=== PATIENT | male | born 1980 | race Caucasian/White ===

== ENCOUNTER 2018-03-21 13:31 | Emergency (ER) | payer SELFPAY ==
[~2018-03-21] VITALS: Ht 167.6 cm; Wt 98.0 kg
[~2018-03-21 13:31] MED LIST: ASPI-825 PO; INSLAN SQ; LISI10TA PO; METF-446 PO; OMEG1CAP12 PO
[2018-03-21 13:43] LABS: GLUCOSE,POINT OF CARE 276 MG/DL (70-110)
[2018-03-21] MEDS ORDERED: KETOROLAC TROMETHAMINE 60 MG/2 ML VIAL IM ONE (15:00)
[2018-03-21] MEDS ORDERED: METHOCARBAMOL 500 MG TABLET PO ONE (15:00)
[2018-03-21 15:51] VITALS: BP 150/94
== END 2018-03-21 15:53 | disposition home or self-care (01) ==
LOC: EMS 13:32
DX: S16.1XXA Strain of muscle, fascia and tendon at neck level, initial encounter (principal); I10 Essential (primary) hypertension; E11.9 Type 2 diabetes mellitus without complications; E78.00 Pure hypercholesterolemia, unspecified; Z98.890 Other specified postprocedural states; Z79.82 Long term (current) use of aspirin; Z79.4 Long term (current) use of insulin; Z79.899 Other long term (current) drug therapy; V87.7XXA Person injured in collision between other specified motor vehicles (traffic), initial encounter; Y93.89 Activity, other specified; Y92.89 Other specified places as the place of occurrence of the external cause; Y99.8 Other external cause status
CPT/HCPCS: 82962; 96372; 99283; J1885

== ENCOUNTER 2022-02-14 01:11 | Emergency (ER) | payer SELFPAY ==
[~2022-02-14] VITALS: Ht 170.2 cm; Wt 90.9 kg
[2022-02-14 01:38] VITALS: BP 139/74
[2022-02-14] MEDS ORDERED: ACETAMINOPHEN 500 MG TABLET PO ONE (01:45)
== END 2022-02-14 02:21 | disposition home or self-care (01) ==
LOC: EMS 01:13
DX: I83.891 Varicose veins of right lower extremity with other complications (principal); E11.9 Type 2 diabetes mellitus without complications; I10 Essential (primary) hypertension; E78.00 Pure hypercholesterolemia, unspecified; Z98.890 Other specified postprocedural states
CPT/HCPCS: 82962; 99283

== ENCOUNTER 2022-07-04 08:22 | Emergency (ER) | payer SELFPAY ==
[~2022-07-04] VITALS: Ht 170.2 cm; Wt 99.6 kg
[2022-07-04] MEDS ORDERED: LORazepam 1 MG TABLET PO ONE (08:45)
[2022-07-04 09:04] LABS: BASOPHILS % (AUTO) 0.6 % (0.0-2.0); EOSINOPHILS % (AUTO) 0.5 % (1.0-6.0); HEMATOCRIT 40.4 % (41-53); HEMOGLOBIN 13.8 g/dL (13.5-17.5); LYMPHOCYTES # (AUTO) 2.1 K/uL (1.0-4.8); MEAN CORPUSCULAR HEMOGLOBIN 29.5 pg (26.0-34.0); MEAN CORPUSCULAR HGB CONC 34.3 G/dL (31.0-37.0); MEAN CORPUSCULAR VOLUME 86 fL (80-100); MONOCYTES # (AUTO) 0.5 K/uL (0.1-1.0); MONOCYTES % (AUTO) 4.6 % (2.0-9.0); NEUTROPHILS # (AUTO) 7.2 K/uL (1.8-7.7); NEUTROPHILS % (AUTO) 73.3 % (40.0-70.0); PLATELET COUNT (AUTO) 148 K/uL (150-450); RED BLOOD CELL COUNT(AUTO) 4.69 MIL/uL (4.50-5.90); RED CELL DISTRIBUTION WIDTH 14.1 % (11.5-14.5)
[2022-07-04 09:14] LABS: ANION GAP 9 mmol/L (8-16); CALCIUM, TOTAL 9.1 mg/dL (8.8-10.5); CARBON DIOXIDE 26 mmol/L (22-29); CHLORIDE 99 mmol/L (98-107); GLOMERULAR FILTR. RATE CALC > 60 mL/min (>60); GLUCOSE,RANDOM 289 mg/dL (70-110); POTASSIUM 4.4 mmol/L (3.5-5.1); SODIUM SERUM 134 mmol/L (136-145); UREA NITROGEN, BLOOD 14 mg/dL (7-18)
[2022-07-04 09:38] LABS: ALANINE AMINOTRANSFERASE 23 U/L (12-78); ALBUMIN 3.7 g/dL (3.4-5.0); ALKALINE PHOSPHATASE 67 U/L (46-116); ASPARTATE AMINOTRANSFERASE 15 U/L (15-37); BILIRUBIN,TOTAL 0.3 mg/dL (0.1-1.0); CREATINE KINASE, TOTAL ONLY 149 U/L (39-308); TOTAL PROTEIN, SERUM 7.4 g/dL (6.4-8.2)
[2022-07-04 09:46] LABS: APPEARANCE,URINE CLEAR (CLEAR); BILIRUBIN,URINE NEGATIVE (NEGATIVE); GLUCOSE, URINE (UA) >=1000 mg/dL (NEGATIVE); LEUKOCYTE ESTERASE ,URINE NEGATIVE (NEGATIVE); NITRATE,URINE NEGATIVE (NEGATIVE); OCCULT BLOOD,URINE NEGATIVE (NEGATIVE); PH,URINE 5.5 (5.0-8.0); PROTEIN,URINE 30-70 mg/dL (NEGATIVE); SPECIFIC GRAVITIY, URINE 1.025 (1.003-1.030); UROBILINOGEN,URINE <=1.0 mg/dL (<=1.0)
[2022-07-04 09:50] LABS: B-TYPE NATRIURETIC PEPTIDE < 5 pg/mL (0-100)
[2022-07-04 10:15] LABS: BACTERIA,URINE Rare /HPF (None Seen); RBC,URINE None Seen /HPF (0-2); WBC,URINE 0-2 /HPF (0-5)
[2022-07-04 10:16] LABS: SQUAMOUS EPITHELIAL CELL,UR Rare /LPF (None Seen)
[2022-07-04] MEDS ORDERED: LORA-1000 PO (14:07)
[2022-07-04 14:16] VITALS: BP 135/85
== END 2022-07-04 14:28 | disposition home or self-care (01) ==
LOC: EMS 08:24
DX: R07.89 Other chest pain (principal); F41.9 Anxiety disorder, unspecified; E11.9 Type 2 diabetes mellitus without complications; E78.00 Pure hypercholesterolemia, unspecified; I10 Essential (primary) hypertension; Z96.653 Presence of artificial knee joint, bilateral; Z98.890 Other specified postprocedural states
CPT/HCPCS: 71045; 80053; 81001; 82550; 83880; 84484; 85025; 93005; 99285; 36415-L1; 36415-TC

== ENCOUNTER 2023-10-03 10:24 | Emergency (ER) | payer MEDICAID, OTHER ==
[~2023-10-03] VITALS: Ht 170.2 cm; Wt 92.3 kg
[~2023-10-03 10:24] MED LIST changes: +LORA-1000 PO
[2023-10-03 10:37] VITALS: TEMP 98
[2023-10-03 12:56] LABS: GLUCOMETER DEV NAME(LOC) ER.7; GLUCOSE,POINT OF CARE 305 MG/DL (70-110)
[2023-10-03 13:15] LABS: APPEARANCE,URINE CLEAR (CLEAR); BILIRUBIN,URINE NEGATIVE (NEGATIVE); COLOR,URINE LIGHT YELLOW (YELLOW); GLUCOSE, URINE (UA) >=1000 mg/dL (NEGATIVE); KETONES,URINE NEGATIVE (NEGATIVE); LEUKOCYTE ESTERASE ,URINE NEGATIVE (NEGATIVE); NITRATE,URINE NEGATIVE (NEGATIVE); OCCULT BLOOD,URINE NEGATIVE (NEGATIVE); PH,URINE 5.5 (5.0-8.0); PROTEIN,URINE 30-70 mg/dL (NEGATIVE); SPECIFIC GRAVITIY, URINE 1.035 (1.003-1.030); UROBILINOGEN,URINE <=1.0 mg/dL (<=1.0)
[2023-10-03 13:18] LABS: BASOPHILS % (AUTO) 0.5 % (0.0-2.0); EOSINOPHILS % (AUTO) 2.6 % (1.0-6.0); HEMATOCRIT 43.2 % (41-53); HEMOGLOBIN 14.9 g/dL (13.5-17.5); LYMPHOCYTES # (AUTO) 2.4 K/uL (1.0-4.8); LYMPHOCYTES % (AUTO) 30.2 % (22.0-44.0); MEAN CORPUSCULAR HEMOGLOBIN 29.9 pg (26.0-34.0); MEAN CORPUSCULAR HGB CONC 34.4 G/dL (31.0-37.0); MEAN CORPUSCULAR VOLUME 87 fL (80-100); MONOCYTES # (AUTO) 0.6 K/uL (0.1-1.0); MONOCYTES % (AUTO) 7.9 % (2.0-9.0); NEUTROPHILS # (AUTO) 4.7 K/uL (1.8-7.7); NEUTROPHILS % (AUTO) 58.8 % (40.0-70.0); PLATELET COUNT (AUTO) 142 K/uL (150-450); RED BLOOD CELL COUNT(AUTO) 4.97 MIL/uL (4.50-5.90); RED CELL DISTRIBUTION WIDTH 13.9 % (11.5-14.5); WHITE BLOOD COUNT (AUTO) 8.1 K/uL (4.5-11.0)
[2023-10-03 13:19] LABS: ANION GAP 9 mmol/L (8-16); CALCIUM, TOTAL 9.3 mg/dL (8.8-10.5); CARBON DIOXIDE 26 mmol/L (22-29); CHLORIDE 98 mmol/L (98-107); CREATININE 0.63 mg/dL (0.60-1.30); GLOMERULAR FILTR. RATE CALC > 60 mL/min (>60); GLUCOSE,RANDOM 319 mg/dL (70-110); POTASSIUM 4.3 mmol/L (3.5-5.1); SODIUM SERUM 133 mmol/L (136-145); UREA NITROGEN, BLOOD 15 mg/dL (7-18)
[2023-10-03 13:49] LABS: BACTERIA,URINE None Seen /HPF (None Seen); RBC,URINE None Seen /HPF (0-2); WBC,URINE None Seen /HPF (0-5)
[2023-10-03] MEDS: SODIUM CHLORIDE 0.9% 1,000 ML IV ONE (14:50)
[2023-10-03] MEDS: CEPHALEXIN MONOHYDRATE 500 MG CAPSULE PO ONE (15:07)
[2023-10-03] MEDS: INSULIN REGULAR, HUMAN 100 UNITS/ML IVP ONE (15:08)
[2023-10-03] MEDS ORDERED: CEPH-558 PO (16:01)
[2023-10-03] MEDS ORDERED: INSLAN SQ (16:22)
[2023-10-03] MEDS ORDERED: METF-446 PO (16:22)
[2023-10-03 16:32] VITALS: BP 137/81; PULSE 78; RESP 16
[2023-10-03 19:01] LABS: GLUCOMETER DEV NAME(LOC) ERT.5; GLUCOSE,POINT OF CARE 274 MG/DL (70-110)
== END 2023-10-03 16:35 | disposition home or self-care (01) ==
LOC: EMS 10:24
DX: E11.65 Type 2 diabetes mellitus with hyperglycemia (principal); I80.9 Phlebitis and thrombophlebitis of unspecified site; E78.00 Pure hypercholesterolemia, unspecified; I10 Essential (primary) hypertension; Z96.653 Presence of artificial knee joint, bilateral; Z98.890 Other specified postprocedural states
CPT/HCPCS: 99283; 96374; 96361; 80048; 81001; 82962; 85025; 36415; J1815; J7030

== ENCOUNTER 2024-10-16 12:25 | Emergency (ER) | payer MEDICAID ==
[~2024-10-16] VITALS: Ht 175.3 cm; Wt 77.3 kg
[~2024-10-16 12:25] MED LIST changes: +CEPH-558 PO; -LORA-1000 PO; +LORA1TAB25 PO
[2024-10-16 12:30] VITALS: BP 125/77; PULSE 88; RESP 18; TEMP 98; O2SAT 99
[2024-10-16] MEDS ORDERED: INSU100I26 SQ (12:33)
[2024-10-16] MEDS ORDERED: LISI5TAB21 PO (12:33)
[2024-10-16] MEDS ORDERED: ATOR40TA71 PO (12:33)
[2024-10-16] MEDS ORDERED: ACET-3385 PO (13:50)
[2024-10-16] MEDS ORDERED: AMOX-457 PO (13:50)
[2024-10-16] MEDS ORDERED: IBUP-1492 PO (13:50)
[2024-10-16] MEDS: AMOX TR/POT CLAV 875 MG/125 MG TABLET PO ONE (13:54)
[2024-10-16] MEDS: ACETAMINOPHEN 500 MG TABLET PO ONE (13:54)
[2024-10-16] MEDS: IBUPROFEN 600 MG TABLET PO ONE (13:54)
== END 2024-10-16 13:59 | disposition home or self-care (01) ==
LOC: EMS 12:25
DX: K08.89 Other specified disorders of teeth and supporting structures (principal); K02.9 Dental caries, unspecified; K03.2 Erosion of teeth; E11.8 Type 2 diabetes mellitus with unspecified complications; E78.00 Pure hypercholesterolemia, unspecified; I10 Essential (primary) hypertension; Z98.890 Other specified postprocedural states; Z96.653 Presence of artificial knee joint, bilateral; Z91.040 Latex allergy status; Z79.899 Other long term (current) drug therapy
CPT/HCPCS: 82962; 99284